=== PATIENT | male | born 1945 | race Caucasian/White ===

== ENCOUNTER → 2019-11-06 | Outpatient (CLI) | payer MEDICARE, BC | END | disposition home or self-care (01) | LOC: LABPAT 17:00 | PROVIDERS: ATTEND Orthopaedic Surgery | DX: Z01.812 Encounter for preprocedural laboratory examination (principal) | CPT/HCPCS: 87070 ==

== ENCOUNTER 2019-12-10 07:30 | Inpatient (IN) | payer MEDICARE, BC ==
[2019-11-30 14:23] VITALS: BMI 38.0
--- NOTE | 2019-12-09 11:28 | HP ---
HISTORY AND PHYSICAL REASON FOR ADMISSION: Surgery is scheduled for 12/10/2019. HISTORY OF PRESENT ILLNESS: Luz Diaz is a 74-year-old patient seen with a painful right total knee arthroplasty. We discussed options for treatment with him. He elected to proceed with revision right total knee arthroplasty. Consent regarding the procedure was obtained. Medical clearance was provided by Dr. Yousif. PAST MEDICAL HISTORY: Hyperlipidemia, hypertension, osteoarthritis. PAST SURGICAL HISTORY: Bilateral total knee arthroplasty. MEDICATIONS: Lisinopril and atorvastatin. ALLERGIES: None reported. SOCIAL HISTORY: Denies tobacco use. PHYSICAL EXAMINATION: Evaluation of the right knee: His range of motion is 0-120. There is a mild effusion present. He has a +3 Alec and +2 MCL with overall significant instability otherwise. Ligaments are stable. Hip rotation is without pain. Distal neurovascular exam is intact. RADIOGRAPHS: Radiographs of the right knee revealed a total knee arthroplasty with significant polyethylene wear and possible early loosening further loosening of the tibial component. IMPRESSION: 1. Painful right total knee arthroplasty. 2. Hypertension. 3. Hyperlipidemia. PLAN: Revision right total knee arthroplasty. Surgery is 12/10/2019. MMODL / IJN: [id number] /
[~2019-12-10 07:30] MED LIST: HYDROmorphone 0.5 MG/0.5 ML SYRINGE IVP PRN; TRANEXAMIC ACID 1,000 MG in SODIUM CHLORIDE 0.9% 100 ML IVPB ONE
[2019-12-10] MEDS: LACTATED RINGERS 1,000 ML IV SCH ×2 (08:52→10:00)
[2019-12-10] MEDS: ACETAMINOPHEN TAB 500 MG TAB PO ONE ×2 (09:08→15:59)
[2019-12-10] MEDS: ONDANSETRON 4 MG/2 ML VIAL IVP ONE ×2 (09:09→15:59)
[2019-12-10] MEDS: MELOXICAM 7.5 MG TAB PO ONE ×2 (09:09→15:59)
[2019-12-10 09:18] LABS: Prothrombin Time 10.3 sec (9.0-12.0)
[2019-12-10] MEDS ORDERED: MIDAZOLAM 2 MG/2 ML VIAL IVP ONE (09:27)
[2019-12-10] MEDS ORDERED: fentaNYL (PF) 50 MCG/ML 2 ML AMP IVP ONE (09:27)
[2019-12-10] MEDS ORDERED: ROPIVACAINE 0.2%-NS ON-Q PUMP 1,090 MG, EMPTY PAIN BALL 1 EACH MISCELLANE PRN (09:51)
--- NOTE | 2019-12-10 09:53 | P.ANPRN ---
Procedure Note - Anesthesia - Nerve Block Performed Right Adductor Canal Infusion Time Out Performed: Yes Date of Procedure: 12/10/19 Procedure Start Time: :28 Procedure Stop Time: :45 Location of Patient: PreOp Indication: Acute Post-Operative Pain, Requested by Surgeon Specifically requested for management of pain by DrAziza: Chirag Perez Sedation Type: Sedate with meaningful contact maintained Preparation: Sterile Prep Position: Supine Catheter Depth at Skin (cm): 8 Catheter: Indwelling Needle Types: Pajunk Needle Gauge: 18 Ultrasound used to visualize needle placement: Yes Ultrasound used to observe medication spread: Yes Injectate: 0.5% Ropivacaine (see comment for volume) (20 cc) Blood Aspirated: No Pain Paresthesia on Injection Noted: No Resistance on Injection: Normal Image Stored and Saved: Yes Events: Uneventful and Well Tolerated
[2019-12-10] MEDS ORDERED: PROPOFOL 10 MG/ML 20 ML VIAL IV ONE (10:00)
[2019-12-10] MEDS ORDERED: MIDAZOLAM 2 MG/2 ML VIAL ONE (10:00)
[2019-12-10] MEDS ORDERED: fentaNYL (PF) 50 MCG/ML 2 ML AMP ONE (10:00)
[2019-12-10] MEDS ORDERED: SODIUM CHLORIDE 0.9% 100 ML BAG ONE (10:00)
[2019-12-10] MEDS ORDERED: TRANEXAMIC ACID 1,000 MG/10 ML VIAL ONE (10:00)
[2019-12-10] MEDS: ROPIVACAINE 246.25 MG, EPINEPHrine 0.5 MG, KETOROLAC 30 MG, cloNIDine HCL/PF 80 MCG, WA... MISCELLANE ONE ×10 (10:50→11:33)
[2019-12-10] MEDS ORDERED: LACTATED RINGERS 1,000 ML IV ONE (11:45)
[2019-12-10] MEDS ORDERED: ONDANSETRON 4 MG/2 ML VIAL IVP PRN (12:56)
[2019-12-10] MEDS ORDERED: HYDROmorphone 0.5 MG/0.5 ML SYRINGE IVP PRN ×2 (12:56)
[2019-12-10] MEDS ORDERED: NALOXONE 0.4 MG/ML 1 ML VIAL IV PRN (12:56)
[2019-12-10] MEDS ORDERED: HYDROcodone/APAP 5-325MG 1 EACH TAB PO PRN ×2 (12:56)
--- NOTE | 2019-12-10 12:56 | P.OP ---
Date of Procedure: 12/10/19 Preoperative Diagnosis: Painful/unstable right total knee arthroplasty Postoperative Diagnosis: Painful/unstable right total knee arthroplasty Procedure(s) Performed: Revision right total knee arthroplasty Implants: 1. Depuy TC3 size right cemented femur with one 4 mm posterior lateral augment and 40 mm full porous coated femoral sleeve and 75 mm x 16 mm fluted stem 2. Depuy MBT revision size 4 rotating platform cemented tibial tray with a 37 mm porous-coated metaphyseal sleeve and a 75 mm x 16 mm fluted stem 3. Depuy MBT size 5 rotating tibial platform polyethylene insert 22.5 mm Anesthesia: regional (Adductor canal catheter), local, spinal Surgeon: Chirag Perez Bat Person #1: Genaro Romo Estimated Blood Loss (ml): 50 Pathology: none sent Condition: stable Disposition: PACU Indications for Procedure: 74-year-old patient seen with a painful/unstable right total knee arthroplasty. After treatment options were discussed, he elected to proceed with revision right total knee arthroplasty. Consent regarding the procedure was obtained. Operative Findings: See description of procedure Description of Procedure: The patient was taken to the operative suite after having undergone a adductor canal catheter placement by the department of anesthesia. The patient received preoperative antibiotics and TXA. The patient underwent a spinal anesthetic by the department of anesthesia. A well-padded tourniquet placed on the proximal right thigh. The right lower extremity was prepped and draped in the normal sterile orthopedic fashion. The knee was extremely unstable under intraoperative evaluation. Extremity was elevated and tourniquet was insufflated to 300. An incision was made following the previous cicatrix sharply through skin. Dissection was taken down to the extensor mechanism. A medial arthrotomy was made. The patella was everted and knee was flexed. There was some synovial fluid consistent with unstable total knee arthroplasty. Retractors were now positioned around the components. Eyes a small thin sagittal saw to help extract the femoral component. The femoral component was extracted in clinic was some early posterior loosening. Anterior aspect was well fixated we did lose some bone there. I turned my attention towards tibial side. I see osteotome to extract the polyethylene component. I thin saw blades to help extract the tibial tray. We did have some bone loss on that side as well. Vince WHITING assisted in all aspects of extraction of the previous component. The patella appeared fixated and stable. At this point we began working on the tibia. Serial reaming was performed. We now broached for metaphyseal sleeve. We now placed a trial construct in position with good stability noted. We now began serial reaming on the femoral side. We then began serial broaching until we got a good fitting broach for our sleeve on that side. We then laser 4-in-1 cutting guide over the distal femur and freshen up cuts were made. Trial components were now position. We trialed various polyethylene tibial insert and a 22.5 seemed to give us the most stability with full extension. We now removed all trial components. We now copiously irrigated the joint with pulse lavage mechanical irrigation. I used aqua mantis cautery to achieve hemostasis along the posterior capsule. I infiltrated the posterior capsule and use it. All implants were opened and I assembled him on the back table with assistance Vince WHITING. Once all our implants were assembled and ready for implantation we mixed the methylmethacrylate. We again irrigated the wound out copiously with pulse lavage mechanical irrigation. Any was completely dried out. We now implanted our tibial tray cementing down the tibial side without gait any myelopathic on her porous sleeve. We now cemented femoral component again making sure when was cemented down the femur itself and allowed the porous component to be cemented free. We now inserted our polyethylene tibial tray. The knee was taken to full extension back in a flexion making sure removing excess methyl methacrylate. We took the knee back into full extension. We now waited until methylmethacrylate complete hardened. Once it hardened the tourniquet was let down. Additional hemostasis was achieved via electrocautery and aqua mantis cautery. The wound was again irrig ated with pulse lavage mechanical irrigation. The extensor mechanism was repaired with #3 Vicryl. I checked the repair with range of motion and good repair stability. The subcu soft tissues now. Layers with 2-0 Vicryl. The skin was approximated with running subcu trigger sutures and skin glue. We applied sterile dressings. The patient was awakened. He was transferred to recovery in stable condition having the procedure well. Vince WHITING assisted with this complex procedure.
[2019-12-10] MEDS ORDERED: LACTATED RINGERS 1,000 ML IV SCH (13:00)
--- NOTE | 2019-12-10 15:10 | XR ---
EXAMINATION TYPE: XR knee limited RT DATE OF EXAM: 12/10/2019 CLINICAL HISTORY: Right knee pain and arthritis status post total knee replacement. TECHNIQUE: Portable AP and crosstable lateral views of the right knee are obtained immediately posto peratively. COMPARISON: None FINDINGS: Metallic hardware from total right knee arthroplasty is seen and appears satisfactory in a lignment and position. There is slight lucency surrounding the lateral component of the femur. There is evidence of recent surgery with diffuse subcutaneous gas and soft tissue swelling noted. IMPRESSION: METALLIC HARDWARE FROM TOTAL RIGHT KNEE ARTHROPLASTY IS SATISFACTORY IN ALIGNMENT.
[2019-12-10] MEDS ORDERED: ALBUTEROL NEBULIZED 2.5 MG/3 ML INHALATION PRN (16:54)
--- NOTE | 2019-12-10 16:54 | P.CONS ---
History of Present Illness - Reason for Consult Consult date: 12/10/19 Medical management Requesting physician: Chirag Perez - Chief Complaint Medical management - History of Present Illness 74-year-old male with PMH of hypertension, dyslipidemia and asthma presents to [facility] for elective surgery. He is seen after right knee arthroplasty. [facility] physicians has been consulted for medical management of this patient. Patient currently reports a 3 out of 10 pain in his right knee. He denies any headache, lower extremity edema, nausea or vomiting, fever or chills, cough, chest pain, shortness breath, palpitations, changes in urination or bowel habits. No changes in appetite or weight. Patient denies any dizziness, numbness/weakness/tingling of the extremities. Review of Systems Pertinent positives and negatives as discussed in HPI, a complete review of systems was performed and all other systems are negative. Past Medical History Past Medical History: COPD, Hyperlipidemia, Hypertension, Osteoarthritis (OA) History of Any Multi-Drug Resistant Organisms: None Reported Past Surgical History: Hernia Repair, Joint Replacement Additional Past Surgical History / Comment(s): lisette knee replacement,lisette hand surgeries Past Anesthesia/Blood Transfusion Reactions: No Reported Reaction Additional Past Anesthesia/Blood Transfusion Reaction / Comm: no hx blood transfusion Past Psychological History: No Psychological Hx Reported Smoking Status: Former smoker Past Alcohol Use History: Rare Additional Past Alcohol Use History / Comment(s): quit smoking 1987,smoked approx 20 yrs ago <1ppd Past Drug Use History: None Reported - Past Family History Mother Family Medical History: Cancer Medications and Allergies Home Medications Medication Instructions Recorded Confirmed Type Atorvastatin [Lipitor] 10 mg PO DAILY 11/30/19 12/10/19 History Lisinopril [Zestril] 20 mg PO QAM 11/30/19 12/10/19 History Allergies Allergy/AdvReac Type Severity Reaction Status Date / Time No Known Allergies Allergy Verified 12/10/19 08:42 Physical Exam Vitals: Vital Signs Temp Pulse Pulse Resp BP Pulse Ox 12/10/19 16:00 63 17 12/10/19 15:56 98.0 F 63 17 180/92 96 12/10/19 15:00 73 16 116/72 98 12/10/19 14:30 75 16 118/61 98 12/10/19 14:15 54 L 16 113/57 98 12/10/19 14:00 56 L 16 121/58 98 12/10/19 13:45 55 L 16 103/55 98 12/10/19 13:30 52 L 16 109/55 97 12/10/19 13:16 57 L 16 108/54 95 12/10/19 12:57 97.1 F L 60 16 101/70 95 12/10/19 09:49 63 20 146/69 97 12/10/19 08:36 97.2 F L 63 20 170/80 97 Intake and Output 12/10/19 12/10/19 12/10/19 06:59 14:59 22:59 Intake Total 1650 Output Total 50 Balance 1600 Intake: IV 1650 Output: Estimated Blood Loss 50 Other: Weight 115 kg 115 kg General: [no distress], [appears at stated age] Derm: [warm], [dry] Head: [atraumatic], [normocephalic], [symmetric] Eyes: [EOMI], [no lid lag], [anicteric sclera] Mouth: [no lip lesion], [mucus membranes moist] Cardiovascular: [S1S2 reg], [no murmur], [positive DP pulse bilateral], Lungs: [CTA bilateral], [no rhonchi, no rales] , [no accessory muscle use] Abdominal: [soft], [ nontender to palpation], [no guarding], [no appreciable organomegaly] Ext: [no gross muscle atrophy], [no edema], [no contractures] right knee wrapped dressing clean dry and intact Neuro: [ CN II-XI grossly intact], [no focal neuro deficits] Psych: [Alert], [oriented], [appropriate affect] Assessment and Plan Assessment: Hypertension Dyslipidemia Asthma Patient's blood pressure is currently elevated at 180/92. His home medication of lisinopril will be restarted. His vitals are being monitored and medications adjusted as necessary. I will restart Lipitor for dyslipidemia. Patient does have some wheezing for which albuterol neb every 4 hours as needed for shortness of breath and wheezing will be started. Patient is POD 0 after right knee arthroplasty. He is on Lovenox for DVT prophylaxis. Pain is controlled with [place] and Dilaudid as needed. PT and OT has been consulted. Plans for possible DC tomorrow depending on how patient progresses with PT and OT. DVT prophylaxis: [Lovenox] Discussed with: [Patient] Anticipated discharge: [1-2 days] Anticipated discharge place: [Home] A total of [35] minutes was spent on the care of this complex patient more than 50% of the time was spent in counseling and care coordination. Patient names his Margi decision maker if he can't make decisions for himself. Patient would like to be no code.
[2019-12-10] MEDS: HYDROmorphone 0.5 MG/0.5 ML SYRINGE IVP PRN (17:13)
[2019-12-10] MEDS ORDERED: ALBUTEROL NEBULIZED 2.5 MG/3 ML INHALATION SCH (20:00)
[2019-12-10] MEDS ORDERED: SENNOSIDES-DOCUSATE SODIUM 1 EACH TAB PO SCH (21:00)
[2019-12-11] MEDS ORDERED: ENOXAPARIN 30 MG/0.3 ML SYRINGE SQ SCH (01:00)
[2019-12-11] MEDS: HYDROmorphone 0.5 MG/0.5 ML SYRINGE IVP PRN (04:31)
[2019-12-11 08:02] LABS: Basophils % (A) 0 %; Eosinophils # (A) 0.1 k/uL (0-0.7); Eosinophils % (A) 1 %; HCT 35.5 % (39.0-53.0); HGB 12.3 gm/dL (13.0-17.5); Lymphocytes # (A) 0.9 k/uL (1.0-4.8); Lymphocytes % (A) 12 %; MCH 32.8 pg (25.0-35.0); MCHC 34.6 g/dL (31.0-37.0); MCV 94.7 fL (80.0-100.0); Monocytes # (A) 0.5 k/uL (0-1.0); Monocytes % (A) 6 %; Neutrophils # (A) 6.2 k/uL (1.3-7.7); Neutrophils % (A) 80 %; Platelet Count 172 k/uL (150-450); RBC 3.75 m/uL (4.30-5.90); RDW 12.8 % (11.5-15.5); WBC 7.8 k/uL (3.8-10.6)
[2019-12-11 08:03] VITALS: BP 184/66; PULSE 76; RESP 17; TEMP 98
[2019-12-11] MEDS ORDERED: ATORVASTATIN 10 MG TAB PO SCH (09:00)
[2019-12-11] MEDS ORDERED: LISINOPRIL 20 MG TAB PO SCH (09:00)
--- NOTE | 2019-12-11 10:04 | P.PN ---
Subjective Progress Note Date: 12/11/19 Principal diagnosis: Status post revision right total knee arthroplasty Patient evaluated at bedside today, he is resting comfortably. He's done well with physical therapy at this time. He denies any chest pain or shortness of breath. Objective - Vital Signs Vital signs: Vital Signs Temp 98.0 F 12/11/19 07:00 Pulse 76 12/11/19 07:56 Resp 17 12/11/19 07:56 BP 184/66 12/11/19 07:00 Pulse Ox 92 L 12/11/19 07:00 Intake & Output 12/10/19 12/11/19 12/11/19 18:59 06:59 18:59 Intake Total 1650 Output Total 50 Balance 1600 Weight 115 kg Intake: IV 1650 Output: Estimated Blood Loss 50 Other: # Voids 1 - Exam Right lower extremity: Incision is clean, dry, and intact. The exofin fusion tape is in good condition. There is minimal soft tissue swelling and ecchymosis surrounding the medial and lateral aspects of the incision. Calf is soft, no tenderness with palpation. Plantar flexion, dorsiflexion, EHL, FHL are intact. Sensory exam to light touch throughout the extremity is intact, dorsal pedis pulses 2+. - Labs CBC & Chem 7: 12/11/19 07:33 Labs: Abnormal Lab Results - Last 24 Hours (Table) 12/11/19 Range/Units 07:33 RBC 3.75 L (4.30-5.90) m/uL Hgb 12.3 L (13.0-17.5) gm/dL Hct 35.5 L (39.0-53.0) % Lymphocytes # 0.9 L (1.0-4.8) k/uL Assessment and Plan Assessment: Postop day 1 status post revision right total knee arthroplasty Plan: Pain control, plan for discharge home on [place] 5 mg/325 mg GI and DVT prophylaxis, Eliquis 2.5 mg twice a day for 2 weeks Wound care instructions were discussed Icing and elevating techniques discussed Home physical therapy and nursing after discharge Medical recommendations Plan for discharge home today Time with Patient: Less than 30
--- NOTE | 2019-12-11 10:07 | P.DS ---
Providers Date of admission: 12/10/19 08:09 Expected date of discharge: 12/11/19 Attending physician: Chirag Perez Consults: 12/10/19 12:56 Consult Physician Routine Consulting Provider: Tj Bolanos Consult Reason/Comments: Medical management Do you want consulting provider notified?: Yes Primary care physician: Stated None Hospital Course: Date of admission: 12/10/2019 Date of discharge: 12/11/2019 Admission diagnosis: Status post revision right total knee arthroplasty Discharge diagnosis: Same Attending physician: Dr. Perez Surgical procedures: Revision right total knee arthroplasty Brief history: Patient is a 74-year-old male with a history of previous right total knee arthroplasty that progress became painful and unstable. At this point patient has failed conservative treatment measures and has opted to proceed with a elective revision right total knee arthroplasty. Hospital course: Details of patient's surgery can be found in operative report. Patient tolerated the procedure well and was subsequently transported to orthopedic floor. Patient's orthopeidc and medical care was provided daily. Patient had daily laboratory tests performed for evaluation of overall blood counts. Patient had daily physical therapy to include strengthening range of motion as well as education with walker ambulation. Patient had daily CPM usage as part of their physical therapy program. Patient was treated with Lovenox for their postoperative DVT prophylaxis during their inpatient stay. Patient was noted to have a relatively uneventful postoperative course. Patient reported satisfactory pain control with oral pain medications by postoperative day 0. Patient showed satisfactory progress with physical therapy. Patient moved steadily through the program and had no difficulty meeting the goals by postoperative day 1. Given patient's otherwise satisfactory course and having met physical therapy goals, plan is to discharge patient home on postoperative day 1. Discharge condition/disposition: Patient will be discharged home in stable condition. Discharge medications: Instructions are given on resumption of patient's normal daily medications per primary care recommendation, in addition patient will be prescribed [place] 5 mg/325 mg, Colace 100 mg, Eliquis 2.5mg. Discharge instructions: 1. Wound care and infection precautions, keep incision dry and covered while showering, no lotions, creams, moisturizers. No soaking, tubs, pools, hottubs. Do not scrub over the incision. 2. Weight-bear as tolerated with walker / cane until follow-up. 3. Ice and elevate when necessary. Do not exceed 20 minutes per hour with ice pack. 4. Utilize compression sleeve until seen at first follow up appointment. 5. Visiting nursing care. 6. Home physical therapy including home CPM. 7. Pain meds and anticoagulants per prescription. 8. Pain medication has potential to cause constipation. Increase oral fluid and fiber intake. Contact primary care provider if you have not had a bowel movement within 48 hours after discharge 9. No anti-inflammatory medication until discussed at first post operative visit, this including Motrin, Aleve, Mobic, Diclofenac 10. Follow up in office at 2 weeks postop with Vince Romo PA-C 11. Follow up with your primary care doctor 7-10 days after discharge. 12. Contact [facility] with any questions, . Procedures: Revision right total knee arthroplasty Patient Condition at Discharge: Good Plan - Discharge Summary Discharge Rx Participant: Yes New Discharge Prescriptions: New Docusate [Colace] 100 mg PO DAILY #30 capsule Apixaban [Eliquis] 2.5 mg PO BID #60 tab Hydrocodone/Acetaminophen [[place] 5-325] 1 - 2 each PO Q6HR PRN #56 tab PRN Reason: Pain No Action Lisinopril [Zestril] 20 mg PO QAM Atorvastatin [Lipitor] 10 mg PO DAILY Discharge Medication List Atorvastatin [Lipitor] 10 mg PO DAILY 11/30/19 [History] Lisinopril [Zestril] 20 mg PO QAM 11/30/19 [History] Apixaban [Eliquis] 2.5 mg PO BID #60 tab 12/11/19 [Rx] Docusate [Colace] 100 mg PO DAILY #30 capsule 12/11/19 [Rx] Hydrocodone/Acetaminophen [[place] 5-325] 1 - 2 each PO Q6HR PRN #56 tab 12/11/19 [Rx] Follow up Appointment(s)/Referral(s): Genaro Romo PAC [PHYSICIAN RN UNIT MANAGER] - 12/26/19 2:30 pm Activity/Diet/Wound Care/Special Instructions: Orthopedic Discharge Instructions: 1. Wound care and infection precautions, keep incision dry and covered while showering, no lotions, creams, moisturizers. No soaking, pools, hot tubs. Do not scrub over incision. 2. Weight-bear as tolerated with walker / cane until follow-up. 3. Ice and elevate when necessary. Do not exceed 20 minutes per hour with ice pack. 4. Utilize compression sleeve until seen at first follow up appointment. 5. Pain meds and anticoagulants per prescription. 6. Pain medication has potential to cause constipation. Increase oral fluid and fiber intake. Contact primary care provider if you have not had a bowel movement within 48 hours after discharge. 7. No anti-inflammatory medication until discussed at first post operative visit, this including Motrin, Aleve, Mobic, Diclofenac. 8. Follow up in office at 2 weeks postop with Vince Romo PA-C 9. Follow up with your primary care doctor 7-10 days after discharge. 10. Contact [facility] with any questions, . Discharge Disposition: HOME WITH HOME HEALTH SERVICES
--- NOTE | 2019-12-11 10:38 | P.PN ---
Progress Note - Text 12/10 644am 74-year-old male status post total knee replacement by Dr. Perez. Patient has an On-Q pump for postop pain control with the solution running at 8 mL an hour with a VAS of 2. Dressing clean dry and intact. Plan to continue On-Q pump infusion
--- NOTE | 2019-12-11 12:14 | P.PN ---
Subjective Progress Note Date: 12/11/19 Principal diagnosis: Medical management Patient was seen and examined. No acute events overnight. Patient reports well-controlled right knee pain. He has been working with physical therapy effectively. Pain is well-controlled on oral medication. He denies any chest pain, shortness of breath or palpitations. No nausea or vomiting. No fever or chills. Objective - Vital Signs Vital signs: Vital Signs Temp 98.0 F 12/11/19 07:00 Pulse 76 12/11/19 07:56 Resp 17 12/11/19 07:56 BP 184/66 12/11/19 07:00 Pulse Ox 92 L 12/11/19 07:00 Intake & Output 12/10/19 12/11/19 12/11/19 18:59 06:59 18:59 Intake Total 1650 Output Total 50 Balance 1600 Weight 115 kg Intake: IV 1650 Output: Estimated Blood Loss 50 Other: # Voids 1 - Exam General: [no distress], [appears at stated age] Derm: [warm], [dry] Head: [atraumatic], [normocephalic], [symmetric] Eyes: [EOMI], [no lid lag], [anicteric sclera] Mouth: [no lip lesion], [mucus membranes moist] Cardiovascular: [S1S2 reg], [no murmur], [positive DP pulse bilateral], Lungs: [CTA bilateral], [no rhonchi, no rales] , [no accessory muscle use] Abdominal: [soft], [ nontender to palpation], [no guarding], [no appreciable organomegaly] Ext: [no gross muscle atrophy], [no edema], [no contractures] right knee wrapped dressing clean dry and intact Neuro: [ CN II-XI grossly intact], [no focal neuro deficits] Psych: [Alert], [oriented], [appropriate affect] - Labs CBC & Chem 7: 12/11/19 07:33 Labs: Abnormal Lab Results - Last 24 Hours (Table) 12/11/19 Range/Units 07:33 RBC 3.75 L (4.30-5.90) m/uL Hgb 12.3 L (13.0-17.5) gm/dL Hct 35.5 L (39.0-53.0) % Lymphocytes # 0.9 L (1.0-4.8) k/uL Assessment and Plan Assessment: Hypertension Dyslipidemia Asthma Patient's blood pressure is currently elevated at 184/66. His home medication of lisinopril will be restarted. His vitals are being monitored and medications adjusted as necessary. I will restart Lipitor for dyslipidemia. Patient does have some wheezing for which albuterol neb every 4 hours as needed for shortness of breath and wheezing will be started. He does have an albuterol inhaler at home. Patient is POD 1 after right knee arthroplasty. He is on Lovenox for DVT prophylaxis, plans to transition to Eliquis for discharge. Pain is controlled with [place] and Dilaudid as needed. PT and OT has been consulted and patient has been progressing well. Plans on DC home today.
== END 2019-12-11 13:00 | disposition home health service (06) | DRG 468 ==
LOC: EDSTATUS 07:30 → 2ORMAIN 08:09 → 4SSUR 15:14
PROVIDERS: ADMIT Orthopaedic Surgery; ATTEND Orthopaedic Surgery
PROC: 0SRT0J9 Replacement of Right Knee Joint, Femoral Surface with Synthetic Substitute, Cemented, Open Approach (ICD-10-PCS; principal; 2019-12-10 10:05)
PROC: 0SRV0J9 Replacement of Right Knee Joint, Tibial Surface with Synthetic Substitute, Cemented, Open Approach (ICD-10-PCS; principal; 2019-12-10 10:05)
PROC: 0SPT0JZ Removal of Synthetic Substitute from Right Knee Joint, Femoral Surface, Open Approach (ICD-10-PCS; principal; 2019-12-10 10:05)
PROC: 0SPV0JZ Removal of Synthetic Substitute from Right Knee Joint, Tibial Surface, Open Approach (ICD-10-PCS; principal; 2019-12-10 10:05)
DX: T84.022A Instability of internal right knee prosthesis, initial encounter (principal); I10 Essential (primary) hypertension; E78.5 Hyperlipidemia, unspecified; M19.90 Unspecified osteoarthritis, unspecified site; J44.9 Chronic obstructive pulmonary disease, unspecified; Y79.2 Prosthetic and other implants, materials and accessory orthopedic devices associated with adverse incidents; Z79.899 Other long term (current) drug therapy; Z98.890 Other specified postprocedural states; Z96.652 Presence of left artificial knee joint; Z87.891 Personal history of nicotine dependence; Z80.9 Family history of malignant neoplasm, unspecified
CPT/HCPCS: 64448; 76942; 85025; 85610